=== PATIENT | female | born 1995 | race Caucasian/White ===

== ENCOUNTER 2024-01-30 11:25 | Emergency (ER) | payer OTHER ==
[~2024-01-30] VITALS: Ht 167.6 cm; Wt 72.5 kg
[2024-01-30] VITALS (21 sets, daily range): BP systolic 83–126; BP diastolic 51–82
[~2024-01-30 11:25] MED LIST: DIFLUCAN150 MG PO; MOTRIN IB200 MG OR; NAPROSYN500 MG PO; OCELLA1 TAB PO; ULTRAM50 M1 PO
[2024-01-30] MEDS ORDERED: SEROQUEL50 MG PO (11:34)
[2024-01-30] MEDS ORDERED: SODIUM CHLORIDE 0.9% 1,000 ML IV ONE (12:10)
[2024-01-30] MEDS ORDERED: Pantoprazole Sodium 40 MG VIAL (Protonix) IV ONE (12:10)
[2024-01-30 12:15] LABS: BASO% 0.4 % (0-3); EOS% 2.2 % (0-8); HEMATOCRIT 36.7 % (37.0-47.0); IMMATURE GRANULOCYTES 0.2 % (0.0-5.0); MEAN CORPUSCULAR HGB 23.5 pG CALC (26.0-32.0); MONO% 6.1 % (2-13); NEUT# 5.47 thou/uL (2.00-7.15); NEUT% 64.1 % (42-76); RED BLOOD COUNT 4.69 mill/uL (4.20-5.60); RED CELL DISTRI WIDTH 15.5 % (11.5-15.5)
[2024-01-30 12:26] LABS: MEAN CELL VOLUME 78.3 fL CALC (80.0-100.0)
[2024-01-30 12:43] LABS: ALBUMIN 4.7 g/dL (3.2-5.0); ALKALINE PHOSPHATASE 67 u/l (38-126); ANION GAP 15 (6-22 (CALC)); BUN 9 mg/dL (7-17); BUN/CREATININE RATIO 16 (12-20 (CALC)); CARBON DIOXIDE 24 mmol/l (22-30); CHLORIDE 104 mmol/l (95-108); CREATININE 0.6 mg/dL (0.5-1.0); ESTIMATED GFR 125 ML/MIN (>=90 (CALC)); SGOT/AST 29 u/l (14-36); SODIUM 140 mmol/l (137-146); TOTAL PROTEIN 7.8 g/dL (6.3-8.2)
[2024-01-30] MEDS ORDERED: LIDOCAINE HCL 1% (10MG/ML) 100 MG/10 ML MDV STI ONE (13:40)
[2024-01-30] MEDS ORDERED: ALUM & MAG HYDROX-SIMETHICONE 30 ML PO ONE (13:40)
[2024-01-30] MEDS ORDERED: Barium Sulfate (Readi-Cat 2 Berry) 450 ML/BTL PO ONE (14:05)
[2024-01-30] MEDS ORDERED: ISOVUE-300 (Iopamidol) 100 ML SDV IV ONE (14:05)
[2024-01-30] MEDS ORDERED: Barium Sulfate (Readi-Cat 2 Banana) 450 ML/BTL PO ONE (14:05)
[2024-01-30] MEDS ORDERED: DIATRIZOATE MEGLUMINE & SODIUM 30 ML/BTL PO ONE (14:05)
[2024-01-30] MEDS ORDERED: LIDOCAINE VISCOUS 2% 15 ML UDC PO ONE (14:10)
[2024-01-30] MEDS ORDERED: PROTONIX40 MG PO (16:29)
== END 2024-01-30 17:06 | disposition home or self-care (01) | DRG 392 ==
LOC: ED 11:25
PROVIDERS: Family Medicine
DX: K21.9 Gastro-esophageal reflux disease without esophagitis (principal); Z20.822 Contact with and (suspected) exposure to COVID-19
CPT/HCPCS: J2470; Q9967